=== PATIENT | male | born 1975 | race Two or more races ===

== ENCOUNTER → 2020-08-10 | Outpatient (CLI) | payer OTHER ==
--- NOTE | 2020-08-10 08:34 | RAD ---
Complete abdominal ultrasound 08/10/2020 7:41 AM Clinical History: Reason: ELEVATED LFTS / Spl. Instructions: / History: Technique: Ultrasound examination of the abdomen was performed, and multiple static images were subm itted for review. Comparison: None Findings: Exam is significantly limited secondary to body habitus of the patient. Pancreas is not visualized. Portions of the liver obscured. The liver is enlarged measuring 19 cm longitudinally. There is increa sed echogenicity of the liver suggesting some degree of hepatic steatosis. The aorta and IVC are poorly visualized. The gallbladder is normal in appearance without wall thickening, stones, or sludge. No pericholecysti c fluid is seen. Sonographic Smiley's sign is negative. Spleen is mildly enlarged measuring 12.4 cm longitudinally There is a small echogenic focus within the left kidney parenchyma measuring 1.6 x 1.7 x 1.9 cm. The bilateral kidneys are otherwise normal in appearance without evidence of obstructive uropathy, or nephrolithiasis.. Right kidney measures 11 cm in length. Left kidney measures 12.1 cm in length. Impression: 1. Limited exam 2. Mild hepatomegaly and possible hepatic steatosis 3. Mild splenomegaly 4. 1.9 cm echogenic mass, left kidney, most likely a small angiomyolipoma. Given lesion size greater than 1 cm, follow-up multiphase CT is recommended for characterization. Electronically signed by: Dion Whitney MD (08/10/2020 8:31 AM) [id number]
== END ==
LOC: US 08:07
PROVIDERS: ATTEND Family Medicine
DX: K76.0 Fatty (change of) liver, not elsewhere classified (principal); R16.2 Hepatomegaly with splenomegaly, not elsewhere classified; N28.9 Disorder of kidney and ureter, unspecified; R94.5 Abnormal results of liver function studies
CPT/HCPCS: 76700

== ENCOUNTER → 2020-11-02 | Outpatient (CLI) | payer OTHER ==
[~2020-11-02] MED LIST: IOHEXOL 300 MG/ML 100ML VIAL. IV ONE
--- NOTE | 2020-11-02 15:37 | RAD ---
CT scan of the abdomen and pelvis without and with contrast 11/02/2020 CLINICAL HISTORY: Echogenic mass seen involving the left kidney on ultrasound. TECHNIQUE: Unenhanced contiguous, 3 mm axial sections were obtained through the abdomen. After the in travenous administration of 60 cc of Omnipaque 300, contiguous, 0.625 mm axial sections were obtained through the abdomen and pelvis. 3 mm reconstructed axial and 3 mm sagittal and coronal reconstructed images were obtained. One or more of the following individualized dose reduction techniques were utilized for this study: 1. Automated exposure control. 2. Adjustment of the mA and/or kV according to patient size. 3. Use of iterative reconstruction technique. FINDINGS: Comparison is made to the patient's renal ultrasound dated 08/10/2020. Images through the lung bases demonstrate minimal dependent subsegmental atelectasis bilaterally. The unenhanced CT images demonstrate no renal calculus. On the postcontrast images, the liver has a decreased attenuation consistent with fatty infiltration. The spleen, pancreas and adrenal glands are within normal limits. A rounded fat-containing mass is seen involving the lateral aspect of the left kidney. This measures 1.5 cm in size. This corresponds to abnormality seen on the patients ultrasound. It does not enhance with contrast. Its CT and ultrasound appearances are consistent with an angiomyolipoma. No additional abnormality of the left kidney is seen. The abdominal aorta tapers normally. The gallbladder is well-distended. No free fluid or free air is seen within the abdomen. There is no evidence of bowel obstruction. The appendix is well-visualized a nd is within normal limits. Images through the pelvis demonstrate the urinary bladder distended with urine. No free fluid is seen . Very mild S-shaped curvature of the thoracolumbar spine is seen. Degenerative changes are seen invo lving the lower thoracic and throughout the lumbar spine along with both hips. IMPRESSION: 1.5 cm angiomyolipoma is seen involving the left kidney which corresponds to the abnormal ity seen on ultrasound. No acute abnormality is seen. Electronically signed by: Brian Izaguirre MD (11/02/2020 3:35 PM) [id number]
== END ==
LOC: CT 09:22
PROVIDERS: ATTEND Physician Assistant Medical
DX: N20.0 Calculus of kidney (principal); J98.11 Atelectasis; N32.89 Other specified disorders of bladder; M43.8X5 Other specified deforming dorsopathies, thoracolumbar region; M47.815 Spondylosis without myelopathy or radiculopathy, thoracolumbar region
CPT/HCPCS: 74178; Q9967